=== PATIENT | male | born 1980 | race Caucasian/White ===

== ENCOUNTER 2018-12-20 12:30 | Emergency (ER) | payer BC, OTHER ==
--- NOTE | 2018-12-20 12:55 | EDM.PDOC ---
ED HPI GENERAL MEDICAL PROBLEM - General Chief Complaint: Cardiovascular Problem Stated Complaint: CHEST PAIN,SOB Time Seen by Provider: 12/20/18 12:41 Source of Information: Reports: Patient History Limitations: Reports: No Limitations - History of Present Illness INITIAL COMMENTS - FREE TEXT/NARRATIVE: [place] comes into [facility] ED with sxs of atypical L upper chest pains sporadically over the past 2 weeks. Pain is superficial, with some pressure sensation, but nonradiating. There is no roberto SOB, lt headiness, palpitations, sweats, Gi upset or exertional component. His current pain rated 1/10. He just felt he needed to get things checked out. He does not see a PCP routinely. Left Upper Chest Pain Score (Numeric/FACES): 1 - Related Data Allergies Allergy/AdvReac Type Severity Reaction Status Date / Time No Known Allergies Allergy Verified 12/20/18 12:59 Home Meds: Home Meds NK [No Known Home Meds] 12/20/18 [History] ED ROS GENERAL - Review of Systems Review Of Systems: ROS reveals no pertinent complaints other than HPI. ED EXAM, GENERAL - Physical Exam Exam: See Below Exam Limited By: Uncooperative General Appearance: Alert, No Apparent Distress, Anxious, Obese Eye Exam: Bilateral Eye: EOMI, Normal Inspection, PERRL Ears: Normal External Exam Nose: Normal Inspection Throat/Mouth: Normal Inspection, Normal Oropharynx, Normal Voice Head: Normocephalic Respiratory/Chest: No Respiratory Distress, Lungs Clear, Normal Breath Sounds, No Accessory Muscle Use, Chest Non-Tender Cardiovascular: Regular Rate, Rhythm, No Edema, No Gallop, No JVD, No Murmur, No Rub GI/Abdominal: Normal Bowel Sounds, Soft, Non-Tender, No Organomegaly, No Distention, No Mass (Male) Exam: No Hernia Rectal (Males) Exam: Deferred Back Exam: Normal Inspection, Full Range of Motion Extremities: Normal Inspection Neurological: Alert, Oriented, CN II-XII Intact, Normal Cognition, Normal Gait, No Motor/Sensory Deficits Psychiatric: Normal Affect, Anxious Skin Exam: Warm, Dry, Intact, Normal Color, Other (generalized acneiform eruption) Lymphatic: No Adenopathy Course - Vital Signs Text/Narrative:: Following assessment, screening ekg was baseline, chest x ray noted no cardiac enlargement or infiltrates, screening labs were baseline, Troponin I <0.017, and d-dimer also baseline. Atypical chest pain likely musculoskeletal, and can be treated sxs. Last Recorded V/S: Last Vital Signs Temp 36.3 C 12/20/18 12:30 Pulse 106 H 12/20/18 12:30 Resp 18 12/20/18 12:30 BP 139/95 H 12/20/18 12:30 Pulse Ox 95 12/20/18 12:30 - Orders/Labs/Meds Orders: Active Orders 24 hr Category Date Time Status Chest 2V [CR] Stat Exams 12/20/18 12:49 Taken EKG 12 Lead [EK] Routine Ther 12/20/18 12:49 Ordered Labs: Laboratory Tests 12/20/18 12/20/18 12/20/18 Range/Units 12:56 12:56 12:56 WBC 11.0 (4.5-12.0) X10-3/uL RBC 5.87 H (4.30-5.75) x10(6)uL Hgb 17.4 (13.5-17.8) g/dL Hct 51.8 H (30.0-51.3) % MCV 88.3 (80-96) fL MCH 29.7 (27.7-33.6) pg MCHC 33.7 (32.2-35.4) g/dL RDW 12.6 (11.5-15.5) % Plt Count 301 (125-369) X10(3)uL MPV 9.1 (7.4-10.4) fL Neut % (Auto) 72.8 (46-82) % Lymph % (Auto) 17.5 (13-37) % [place] % (Auto) 6.7 (4-12) % Eos % (Auto) 2 (1.0-5.0) % Baso % (Auto) 1 (0-2) % Neut # (Auto) 8.0 (1.6-8.3) # Lymph # (Auto) 1.9 (0.6-5.0) # [place] # (Auto) 0.7 (0.0-1.3) # Eos # (Auto) 0.3 (0.0-0.8) # Baso # (Auto) 0.1 (0.0-0.2) # D-Dimer, Quantitative 0.36 (0.0-0.59) mg/LFEU Sodium 140 (135-145) mmol/L Potassium 4.1 (3.5-5.3) mmol/L Chloride 103 (100-110) mmol/L Carbon Dioxide 27 (21-32) mmol/L BUN 17 (7-18) mg/dL Creatinine 1.1 (0.70-1.30) mg/dL Est Cr Clr Drug Dosing 100.92 mL/min Estimated GFR (MDRD) > 60 (>60) BUN/Creatinine Ratio 15.5 (9-20) Glucose 131 H (80-116) mg/dL Calcium 9.6 (8.6-10.2) mg/dL Total Bilirubin 0.4 (0.1-1.3) mg/dL AST 42 H (5-25) IU/L ALT 105 H (12-36) U/L Alkaline Phosphatase 111 (56-112) IU/L Troponin I (<0.017-0.056) ng/mL Total Protein 7.9 (6.0-8.0) g/dL Albumin 3.7 (3.5-5.2) g/dL Globulin 4.2 g/dL Albumin/Globulin Ratio 0.9 06/17/19 Range/Units 12:56 WBC (4.5-12.0) X10-3/uL RBC (4.30-5.75) x10(6)uL Hgb (13.5-17.8) g/dL Hct (30.0-51.3) % MCV (80-96) fL MCH (27.7-33.6) pg MCHC (32.2-35.4) g/dL RDW (11.5-15.5) % Plt Count (125-369) X10(3)uL MPV (7.4-10.4) fL Neut % (Auto) (46-82) % Lymph % (Auto) (13-37) % [place] % (Auto) (4-12) % Eos % (Auto) (1.0-5.0) % Baso % (Auto) (0-2) % Neut # (Auto) (1.6-8.3) # Lymph # (Auto) (0.6-5.0) # [place] # (Auto) (0.0-1.3) # Eos # (Auto) (0.0-0.8) # Baso # (Auto) (0.0-0.2) # D-Dimer, Quantitative (0.0-0.59) mg/LFEU Sodium (135-145) mmol/L Potassium (3.5-5.3) mmol/L Chloride (100-110) mmol/L Carbon Dioxide (21-32) mmol/L BUN (7-18) mg/dL Creatinine (0.70-1.30) mg/dL Est Cr Clr Drug Dosing mL/min Estimated GFR (MDRD) (>60) BUN/Creatinine Ratio (9-20) Glucose (80-116) mg/dL Calcium (8.6-10.2) mg/dL Total Bilirubin (0.1-1.3) mg/dL AST (5-25) IU/L ALT (12-36) U/L Alkaline Phosphatase (56-112) IU/L Troponin I < 0.017 L (<0.017-0.056) ng/mL Total Protein (6.0-8.0) g/dL Albumin (3.5-5.2) g/dL Globulin g/dL Albumin/Globulin Ratio Departure - Departure Time of Disposition: 13:44 Disposition: Home, Self-Care 01 Condition: Good Clinical Impression: Atypical chest pain Referrals: Levy Lopez MD [Primary Care Provider] - Forms: ED Department Discharge - Problem List & Annotations (1) Atypical chest pain SNOMED Code(s): 627432222 Code(s): R07.89 - OTHER CHEST PAIN Status: Acute Current Visit: Yes Annotation/Comment:: I suggested Tylenol or Ibuprofen, wt loss, and follow up with PCP if needed. - Problem List Review Problem List Initiated/Reviewed/Updated: Yes - My Orders Last 24 Hours: My Active Orders 12/20/18 12:49 Chest 2V [CR] Stat EKG 12 Lead [EK] Routine - Assessment/Plan Last 24 Hours: My Active Orders 12/20/18 12:49 Chest 2V [CR] Stat EKG 12 Lead [EK] Routine Plan: Follow up with PCP if needed.
== END 2018-12-20 13:56 | disposition home or self-care (01) ==
LOC: FB.ED 12:30
DX: R07.89 Other chest pain (principal)
CPT/HCPCS: 36415; 71046; 80053; 84484; 85025; 85379; 93005; 99285-25